=== PATIENT | female | born 1995 | race Caucasian/White ===

== ENCOUNTER 2017-01-15 11:01 | Emergency (ER) | payer OTHER ==
[2017-01-15 11:06] VITALS: BP 124/84; PULSE 100; RESP 20; TEMP 98.1
--- NOTE | 2017-01-15 11:49 | ED ---
General Adult HPI - General Chief complaint: Needlestick/Exposure Stated complaint: [facility]. Exposure Time Seen by Provider: 01/15/17 11:15 Source: patient, RN notes reviewed, old records reviewed Mode of arrival: ambulatory Limitations: no limitations - History of Present Illness Initial comments: This is a 21-year-old female to the ER for evaluation. This patient presents today for evaluation regarding body fluid exposure. Patient was on the floor here in the hospital. She went to move patient's oxygen patient accidentally hospital on her face. Patient's right cheek was exposed to body fluid unknown if there is any exposure by mouth or nose. Patient otherwise has no complaints has no medical history of feels fine - Related Data Home Medications Medication Instructions Recorded Confirmed No Known Home Medications [No 01/15/17 01/15/17 Known Home Medications] Allergies Allergy/AdvReac Type Severity Reaction Status Date / Time No Known Allergies Allergy Verified 01/15/17 11:09 Review of Systems ROS Statement: Those systems with pertinent positive or pertinent negative responses have been documented in the HPI. ROS Other: All systems not noted in ROS Statement are negative. Past Medical History Past Medical History: Asthma History of Any Multi-Drug Resistant Organisms: None Reported Past Surgical History: No Surgical Hx Reported Past Psychological History: No Psychological Hx Reported Smoking Status: Never smoker Past Alcohol Use History: Occasional Past Drug Use History: None Reported General Exam Limitations: no limitations General appearance: alert, in no apparent distress Head exam: Present: atraumatic, normocephalic, normal inspection Eye exam: Present: normal appearance, PERRL, EOMI. Absent: scleral icterus, conjunctival injection, periorbital swelling ENT exam: Present: normal exam, mucous membranes moist Neck exam: Present: normal inspection. Absent: tenderness, meningismus, lymphadenopathy Respiratory exam: Present: normal lung sounds bilaterally. Absent: respiratory distress, wheezes, rales, rhonchi, stridor Cardiovascular Exam: Present: regular rate, normal rhythm, normal heart sounds. Absent: systolic murmur, diastolic murmur, rubs, gallop, clicks GI/Abdominal exam: Present: soft, normal bowel sounds. Absent: distended, tenderness, guarding, rebound, rigid Extremities exam: Present: normal inspection, full ROM, normal capillary refill. Absent: tenderness, pedal edema, joint swelling, calf tenderness Back exam: Present: normal inspection Neurological exam: Present: alert, oriented X3, CN II-XII intact Psychiatric exam: Present: normal affect, normal mood Skin exam: Present: warm, dry, intact, normal color. Absent: rash Course Vital Signs 01/15/17 11:04 Temperature 98.1 F Pulse Rate 100 Respiratory 20 Rate Blood Pressure 124/84 O2 Sat by Pulse 99 Oximetry - Reevaluation(s) Reevaluation #1: 01/15/17 11:58 Discussed at length with patient regarding fluid exposure and procedure. Patient's questions are answered Medical Decision Making - Medical Decision Making 21-year-old female was is full fluid, saliva, to skin. At this point patient will continue to follow up with employee health Disposition Clinical Impression: Employee exposure to body fluids Disposition: HOME SELF-CARE Condition: Good Instructions: Body Substance Exposure (ED) Referrals: Fernando Flower MD [Primary Care Provider] - 1-2 days
== END 2017-01-15 12:05 | disposition home or self-care (01) ==
LOC: EC 11:01
DX: Z77.21 Contact with and (suspected) exposure to potentially hazardous body fluids (principal); X58.XXXA Exposure to other specified factors, initial encounter; Y93.89 Activity, other specified; Y92.239 Unspecified place in hospital as the place of occurrence of the external cause; Y99.0 Civilian activity done for income or pay
CPT/HCPCS: 99283

== ENCOUNTER → 2017-10-02 | Outpatient (CLI) | payer BC | END | disposition home or self-care (01) | LOC: LABWHC1 10:59 | PROVIDERS: ATTEND Otolaryngology | DX: J30.89 Other allergic rhinitis (principal) | CPT/HCPCS: 36415 ==

== ENCOUNTER → 2017-10-09 | Outpatient (CLI) | payer BC ==
--- NOTE | 2017-10-09 22:32 | CT ---
EXAMINATION TYPE: CT sinus wo con DATE OF EXAM: 10/09/2017 COMPARISON: NONE HISTORY: chronic sinusitis/ear infections since February 18, 2017. On and off ear infections and sore throat with headaches per patient. CT DLP: 267 mGycm. Automated Exposure Control for Dose Reduction was Utilized. TECHNIQUE: CT scan of the sinuses is performed without contrast, axial images are obtained. FINDINGS: The paranasal sinuses including the frontal, ethmoid, sphenoid, and maxillary sinuses bila terally are well-aerated without abnormal opacification. The ostiomeatal complex is presumed patent bilaterally. Visualized portion of mastoid air cells show no abnormal opacification. The globes are intact bilate rally. IMPRESSION: The paranasal sinuses are clear.
== END | disposition home or self-care (01) ==
LOC: RADCTMAIN 16:39
PROVIDERS: ATTEND Otolaryngology
DX: J32.9 Chronic sinusitis, unspecified (principal)
CPT/HCPCS: 70486

== ENCOUNTER → 2018-10-01 | Outpatient (CLI) | payer BC ==
--- NOTE | 2018-10-01 17:31 | CT ---
EXAMINATION TYPE: CT abdomen pelvis with IV and oral contrast DATE OF EXAM: 10/01/2018 COMPARISON: None HISTORY: RLQ pain, abdominal cramping CT DLP: 429.8 mGycm Automated exposure control for dose reduction was used. TECHNIQUE: Helical acquisition of images was performed from the lung bases through the pelvis. CONTRAST: Performed with Oral Contrast and with IV Contrast, patient injected with 100 mL of Isovue 3 00. FINDINGS: LUNG BASES: No significant abnormality is appreciated. LIVER/GB: No significant abnormality is appreciated. PANCREAS: No significant abnormality is seen. SPLEEN: No significant abnormality is seen. ADRENALS: No significant abnormality is seen. KIDNEYS: No significant abnormality is seen. FREE AIR: No free air is visualized. RETROPERITONEAL ADENOPATHY: None visualized REPRODUCTIVE ORGANS: No significant abnormality is seen URINARY BLADDER: No significant abnormality is seen. PELVIC ADENOPATHY: None visualized. OSSEOUS STRUCTURES: No significant abnormality is seen. BOWEL: No significant abnormality is seen. The study is negative for appendicitis. OTHER: No acute vascular findings. IMPRESSION: NO ACUTE PROCESS.
== END | disposition home or self-care (01) ==
LOC: RADCTMAIN 14:11
PROVIDERS: ATTEND Physician Assistant
DX: R10.31 Right lower quadrant pain (principal)
CPT/HCPCS: 74177; Q9967